=== PATIENT | male | born 1945 | race Caucasian/White ===

== ENCOUNTER → 2018-11-06 | Outpatient (CLI) | payer OTHER ==
[~2018-11-06] MED LIST: ASPIRIN EC81 M1 PO; BENADRYL25 MG PO; FLONASE16 GM; HYDROCHLOROTHIA25 M1 PO; MEDROLDOSEPACK PO; [UNRECOGNIZED DRUG - OTHER]
== END ==
LOC: M.RAD 16:20
DX: J90 Pleural effusion, not elsewhere classified (principal); I25.10 Atherosclerotic heart disease of native coronary artery without angina pectoris; R06.02 Shortness of breath